=== PATIENT | male | born 1965 | race Caucasian/White ===

== ENCOUNTER 2022-12-04 11:19 | Inpatient (IN) | payer MEDICARE ==
[~2022-12-04] VITALS: Ht 177.8 cm; Wt 71.4 kg
[2022-12-04] VITALS (26 sets, daily range): BP systolic 103–166; BP diastolic 49–83
--- NOTE | 2022-12-04 11:28 | NUR ---
PATIENT ARRIVED IN ED C/O DIZZINESS. STROKE ALERT INITIATED AND TAKEN TO CT.
--- NOTE | 2022-12-04 11:36 | NUR ---
PT AT CT, VSS. PT ALERT AND ORIENTED X 3, AIRWAY PATENT, RESP EVEN AND NON LABORED, SKIN P/W/D. SPEECH CLEAR, FACIAL SWELLING NOTED S/T DENTAL CARIES, NO FACIAL DROOP PER DR GUADARRAMA. COMMUNITY DEVELOPMENT TECHNICIAN EQUAL AND STRONG, NO DRIFT NOTED, SENSORY DEFICIT NOTED TO RIGHT UPPER AND LOWER EXT.
--- NOTE | 2022-12-04 12:01 | NUR ---
PT BACK TO ER ROOM 10 IN STABLE CONDITION. PT STATES " DIZZINESS IS A LITTLE BETTER, HAS MULTIPLE COMPLAINTS AT THIS TIME, C/O DENTAL PAIN, RIGHT ARM PAIN, RIGHT UPPER BACK PAIN, AND PAIN TO BILATERAL LOWER EXTREMITIES. AWARE.
[2022-12-04 12:03] LABS: BASO% 0.3 % (0-3); EOS% 1.6 % (0-8); HEMATOCRIT 47.7 % (39.0-50.0); HEMOGLOBIN 15.9 g/dl (14.0-18.0); IMMATURE GRANULOCYTES 1.8 % (0.0-5.0); LYMPH% 21.8 % (15-41); MEAN CELL VOLUME 96.4 fL CALC (80.0-100.0); MEAN CORPUSCULAR HGB 32.1 pG CALC (26.0-32.0); MEAN CORPUSCULAR HGB CONC 33.3 g/dL CAL (32.0-36.0); NEUT# 5.74 thou/uL (1.82-7.42); NEUT% 66.5 % (42-76); RED BLOOD COUNT 4.95 mill/uL (4.70-6.10); RED CELL DISTRI WIDTH 14.3 % (11.5-15.5)
[2022-12-04] MEDS ORDERED: BACLOFEN10 MG PO (12:17)
[2022-12-04] MEDS ORDERED: TRAMADOL HCL50 MG PO (12:18)
[2022-12-04] MEDS ORDERED: HYDROCO/APAP1 TA9 PO (12:19)
[2022-12-04 12:20] LABS: GFR FOR AFR.AMER. > 60 ML/MIN (>=60 (CALC)); GFR OTHER RACES > 60 ML/MIN (>=60 (CALC))
[2022-12-04] MEDS ORDERED: CRESTOR5 MG PO (12:20)
[2022-12-04] MEDS ORDERED: CARDIZEM LA180 M1 PO (12:21)
[2022-12-04] MEDS ORDERED: NORVASC PO (12:21)
[2022-12-04] MEDS ORDERED: GABAPENTIN100 MG PO (12:21)
--- NOTE | 2022-12-04 12:30 | NUR ---
PT RESTING WITH EYES CLOSED, AWAKENS EASILY. SPOUSE AT BEDSIDE. NO CHANGES IN PT STATUS.
[2022-12-04 12:40] LABS: URINE BILIRUBIN - DIPSTICK Negative (NEGATIVE); URINE BLOOD DIPSTICK Trace-lysed (NEGATIVE); URINE GLUCOSE - DIPSTICK Negative (NEGATIVE); URINE KETONE Negative (NEGATIVE); URINE LEUK ESTERASE Negative (NEGATIVE); URINE NITRITE - DIPSTICK Negative (Negative); URINE PROTEIN - DIPSTICK Negative (NEG-TRACE); URINE SPECIFIC GRAVITY <=1.005; URINE UROBILINOGEN - DIPSTICK 0.2 E.U./dL (0.2)
[2022-12-04 12:43] LABS: URINE COLOR Yellow
[2022-12-04 13:00] LABS: PROTHROMBIN TIME 9.9 SECONDS (9.0-12.5)
--- NOTE | 2022-12-04 13:00 | NUR ---
PT GIVEN URINAL, VOIDED 900CC CLEAR YELLO URINE. NO COMMPLAINTS VOICED AT THIS TIME.
[2022-12-04 13:01] LABS: ALKALINE PHOSPHATASE 71 u/l (38-126); ANION GAP 15 (6-22 (CALC)); BILIRUBIN, TOTAL 0.6 mg/dL (0.2-1.3); BUN 12 mg/dL (9-20); BUN/CREATININE RATIO 17 (12-20 (CALC)); CALCULATED LDLCHOLESTEROL 22 mg/dL (62-129 (CALC)); CARBON DIOXIDE 21 mmol/l (22-30); CHLORIDE 102 mmol/l (95-108); CHOLESTEROL HDL RATIO 2.7 (<4.4 (CALC)); CREATININE 0.7 mg/dL (0.7-1.3); GFR FOR AFR.AMER. > 60 ML/MIN (>=60 (CALC)); GFR OTHER RACES > 60 ML/MIN (>=60 (CALC)); HDL CHOLESTEROL 46 mg/dL (39.0-59.0); POTASSIUM 3.6 mmol/l (3.5-5.1); SGOT/AST 29 u/l (17-59); SODIUM 135 mmol/l (137-146); TOTAL CHOLESTEROL 125 mg/dl (0-199); TOTAL PROTEIN 6.7 g/dL (6.3-8.2); TOTAL TRIGLYCERIDES 284 mg/dl (0-149); VLDL CHOLESTROL 57 mg/dl (8-62 (CALC))
--- NOTE | 2022-12-04 14:00 | NUR ---
DR PIRES AT BEDSIDE TO DISCUSS CLINICAL FINDINGS WITH PT, HE VERBALIZED UNDERSTANDING. NO FACIAL DROOP OR SLURRED SPEECH NOTED, REPORTS NO CHANGES IN SENSORY DEFICITS IN RIGHT UPPER AND LOWER EXT. AIRWAY PATENT,RESP EVEN AND NON LABORED.
--- NOTE | 2022-12-04 14:54 | NUR ---
male pt received to ICU bed 7 in stable condition via stretcher accompanied by Boubacar Cunha RN; pt ambulatory to bed with stand by assistance; admission assessment completed at this time; pt alert and oriented; denies pain at current; c/c of "lightheadedness, little dizziness and blurred vision"; no n/v noted; resp even and unlabored; lungs clear; skin color wnl; ra; hr reg; strong pulses; 1+ edema noted to ble; sb on monitor; feet noted slightly red, pt states "all the time"; abd soft with bs present; no bm noted per creative services writer; urinal placed at bedside; no urine to inspect at this time; #20 to lac and rac saline locked; no redness or edema noted at sites; facial droop noted to right, facial swelling noted to left; NIH completed; plan of care/ am meds explained; call light within reach; will continue to monitor
--- NOTE | 2022-12-04 16:00 | NUR ---
resting in bed with eyes closed; no apparent distress noted; pt noted to desat; o2 greatly approves when awakened; sr on monitor; call light within reach; will continue to monitor
--- NOTE | 2022-12-04 18:32 | NUR ---
pt awake in bed; frequent vomiting noted; MD made aware; orders received; sr on monitor; call light within reach
[2022-12-04 18:47] LABS: CALCULATED LDLCHOLESTEROL 49 mg/dL (62-129 (CALC)); CHOLESTEROL HDL RATIO 2.5 (<4.4 (CALC)); HDL CHOLESTEROL 52 mg/dL (39.0-59.0); TOTAL CHOLESTEROL 129 mg/dl (0-199); TOTAL TRIGLYCERIDES 141 mg/dl (0-149); VLDL CHOLESTROL 28 mg/dl (8-62 (CALC))
--- NOTE | 2022-12-04 19:00 | NUR ---
hand off report received
--- NOTE | 2022-12-04 20:00 | NUR ---
PATIENT RESTING QUIETLY, AWAKE AND ALERT, WATCHING TV, RESPIRATIONS EVEN AND UNLABORED ON ROOM AIR, C/O HEADACHE, PRN MEDICATION REQUESTED FROM MD AND GIVEN AT PATIENT REQUEST, NO S/S OF DISTRESS NOTED.
--- NOTE | 2022-12-04 22:00 | NUR ---
PATIENT RESTING QUIELTY WITH EYES CLOSED, RESPIRATIONS EVEN AND UNLABORED ON ROOM AIR, REPORTS RELIEF OF HEADACHE SYMPTOMS AFTER TYLENOL ADMINISTRATION, NO S/S OF DISTRESS NOTED.
[2022-12-05] VITALS (18 sets, daily range): BP systolic 125–185; BP diastolic 60–94
--- NOTE | 2022-12-05 | NUR ---
PATIENT RESTING WITH EYES CLOSED, LIGHTS OFF FOR COMFORT, NO S/O PAIN OR DISCOMFORT, NO S/S OF DISTRESS NOTED, RESPIRATIONS EVEN AND UNLABORE DON ROOM AIR.
--- NOTE | 2022-12-05 02:00 | NUR ---
patient resting quietly with eyes closed, all vitals wnl
--- NOTE | 2022-12-05 04:00 | NUR ---
PATIENT RESTING QUIETLY WITH EYES CLOSED, RESPIRATIONS EVEN AND UNLABORED ON ROOM AIR, NO C/O PAIN OR DISCOMFORT, NO S/S OF DISTRESS NOTED, ABLE TO USE URINAL UNASSISTED.
--- NOTE | 2022-12-05 08:00 | NUR ---
awake in bed; no apparent distress noted; pt offers no complaints; assessment completed at this time; pt alert and oriented; denies pain; no n/v noted; resp even and unlabored; lungs clear; skin color wnl; ra; hr reg; strong pulses; no edema noted; st on monitor; abd soft with bs present; no bm noted per check writer salesperson; no urine to inspect at this time; #20 to lac and rac saline locked; no redness or edema noted at site; NIH 1 related to mild right facial droop; pt with bilat jaw pain and swelling to left jaw; admits to jaw pain when smiling; plan of care/ am meds explained; call light within reach; will continue to monitor
[2022-12-05 09:17] LABS: BASO% 0.1 % (0-3); EOS% 0.9 % (0-8); HEMATOCRIT 49.2 % (39.0-50.0); HEMOGLOBIN 16.1 g/dl (14.0-18.0); IMMATURE GRANULOCYTES 0.9 % (0.0-5.0); MEAN CELL VOLUME 97.2 fL CALC (80.0-100.0); MEAN CORPUSCULAR HGB 31.8 pG CALC (26.0-32.0); MEAN CORPUSCULAR HGB CONC 32.7 g/dL CAL (32.0-36.0); MONO% 6.4 % (2-13); NEUT# 5.41 thou/uL (1.82-7.42); NEUT% 78.7 % (42-76); RED BLOOD COUNT 5.06 mill/uL (4.70-6.10); RED CELL DISTRI WIDTH 14.3 % (11.5-15.5)
--- NOTE | 2022-12-05 09:49 | NUR ---
lab technologist present at bedside for echo
[2022-12-05 10:08] LABS: ANION GAP 13 (6-22 (CALC)); BUN 14 mg/dL (9-20); BUN/CREATININE RATIO 18 (12-20 (CALC)); CARBON DIOXIDE 25 mmol/l (22-30); CHLORIDE 106 mmol/l (95-108); CREATININE 0.8 mg/dL (0.7-1.3); GFR FOR AFR.AMER. > 60 ML/MIN (>=60 (CALC)); GFR OTHER RACES > 60 ML/MIN (>=60 (CALC)); POTASSIUM 3.9 mmol/l (3.5-5.1); SODIUM 139 mmol/l (137-146)
--- NOTE | 2022-12-05 10:16 | NUR ---
Dr Long present at bedside to assess pt and discuss plan of care/ discharge
--- NOTE | 2022-12-05 12:11 | NUR ---
awake in bed; anxiously awaiting discharge; sr on monitor; iv intact; call light within reach; will continue to monitor
--- NOTE | 2022-12-05 14:00 | NUR ---
awake in bed; offers no complaints; no distress noted; iv intact; sr on monitor; awaiting discharge; call light within reach; will continue to monitor
[2022-12-05] MEDS ORDERED: PLAVIX75 MG PO (15:28)
[2022-12-05] MEDS ORDERED: ATORVASTATIN CA40 MG PO (15:30)
[2022-12-05] MEDS ORDERED: ASPIRIN ADULT L81 M2 PO (15:31)
--- NOTE | 2022-12-05 15:57 | NUR ---
Dr Long called per bond underwriter in regards to outpatient MRI orders; pt eber follow up with pcp to obtained order for MRI per Dr Long
--- NOTE | 2022-12-05 16:19 | NUR ---
Discharge instructions given. Patient verbalizes understanding of same. Discharged in stable condition via Wheelchair to Home with spouse. All belongings sent with pt.
--- NOTE | 2022-12-05 17:21 | NUR ---
spouse present at bedside; pt discharged via wc in stable condition
[2022-12-06] MEDS ORDERED: AMLODIPINE BESYL5 MG PO (07:23)
== END 2022-12-05 17:21 | disposition home or self-care (01) | DRG 69 ==
LOC: ED 11:19 → ED-I 13:11 → ED 13:40 → ICU 13:41
PROVIDERS: Family Medicine; ADMIT Student in an Organized Health Care Education/Training Program; ATTEND Student in an Organized Health Care Education/Training Program
DX: G45.9 Transient cerebral ischemic attack, unspecified (principal); R42 Dizziness and giddiness; I10 Essential (primary) hypertension; F41.9 Anxiety disorder, unspecified; F32.A Depression, unspecified; Z95.818 Presence of other cardiac implants and grafts; Z86.73 Personal history of transient ischemic attack (TIA), and cerebral infarction without residual deficits
CPT/HCPCS: Q9967

== ENCOUNTER 2022-12-10 15:20 | Emergency (ER) | payer MEDICARE ==
[2022-12-10] VITALS (10 sets, daily range): BP systolic 133–145; BP diastolic 80–113
[~2022-12-10] VITALS: Ht 177.8 cm; Wt 69.3 kg
[~2022-12-10 15:20] MED LIST: AMLODIPINE BESYL5 MG PO; ASPIRIN ADULT L81 M2 PO; ATORVASTATIN CA40 MG PO; BACLOFEN10 MG PO; CARDIZEM LA180 M1 PO; CRESTOR5 MG PO; GABAPENTIN100 MG PO; HYDROCO/APAP1 TA9 PO; NORVASC PO; PLAVIX75 MG PO; TRAMADOL HCL50 MG PO
[2022-12-10] MEDS ORDERED: NAPROXEN500 MG PO (18:19)
[2022-12-10] MEDS ORDERED: METHOCARBAMOL500 MG PO (18:19)
== END 2022-12-10 18:53 | disposition home or self-care (01) ==
LOC: ED 15:20
DX: S80.211A Abrasion, right knee, initial encounter (principal); S80.01XA Contusion of right knee, initial encounter; S46.911A Strain of unspecified muscle, fascia and tendon at shoulder and upper arm level, right arm, initial encounter; W10.9XXA Fall (on) (from) unspecified stairs and steps, initial encounter; Y93.89 Activity, other specified; Y92.029 Unspecified place in mobile home as the place of occurrence of the external cause; I10 Essential (primary) hypertension; F41.9 Anxiety disorder, unspecified; F32.A Depression, unspecified; Z86.73 Personal history of transient ischemic attack (TIA), and cerebral infarction without residual deficits

== ENCOUNTER 2023-11-05 10:59 | Emergency (ER) | payer MEDICARE ==
[~2023-11-05] VITALS: Ht 177.8 cm; Wt 69.5 kg
[2023-11-05] VITALS (11 sets, daily range): BP systolic 119–161; BP diastolic 78–97
[~2023-11-05 10:59] MED LIST changes: +METHOCARBAMOL500 MG PO; +NAPROXEN500 MG PO
[2023-11-05] MEDS ORDERED: SODIUM CHLORIDE 0.9% 1,000 ML IV ONE (11:15)
[2023-11-05 11:35] LABS: BASO% 0.4 % (0-3); EOS% 0.8 % (0-8); HEMATOCRIT 54.5 % (39.0-50.0); HEMOGLOBIN 17.7 g/dl (14.0-18.0); IMMATURE GRANULOCYTES 0.9 % (0.0-5.0); LYMPH% 18.4 % (15-41); MEAN CELL VOLUME 98.9 fL CALC (80.0-100.0); MEAN CORPUSCULAR HGB 32.1 pG CALC (26.0-32.0); MEAN CORPUSCULAR HGB CONC 32.5 g/dL CAL (32.0-36.0); MONO% 10.1 % (2-13); NEUT# 7.4 thou/uL (1.82-7.42); NEUT% 69.4 % (42-76); RED BLOOD COUNT 5.51 mill/uL (4.70-6.10); RED CELL DISTRI WIDTH 12.1 % (11.5-15.5)
[2023-11-05 11:39] LABS: URINE BILIRUBIN - DIPSTICK Negative (NEGATIVE); URINE BLOOD DIPSTICK Trace-lysed (NEGATIVE); URINE GLUCOSE - DIPSTICK 100 mg/dL (NEGATIVE); URINE KETONE Negative (NEGATIVE); URINE LEUK ESTERASE Negative (NEGATIVE); URINE NITRITE - DIPSTICK Negative (Negative); URINE PROTEIN - DIPSTICK 30 mg/dL (NEG-TRACE); URINE SPECIFIC GRAVITY 1.015
[2023-11-05 11:40] LABS: URINE COLOR Yellow
[2023-11-05 11:45] LABS: ALKALINE PHOSPHATASE 76 u/l (38-126); ANION GAP 23 (6-22 (CALC)); BILIRUBIN, TOTAL 0.8 mg/dL (0.2-1.3); BUN 12 mg/dL (9-20); BUN/CREATININE RATIO 11 (12-20 (CALC)); CARBON DIOXIDE 13 mmol/l (22-30); CHLORIDE 111 mmol/l (95-108); CREATININE 1.1 mg/dL (0.7-1.3); ESTIMATED GFR 79 ML/MIN (>=90 (CALC)); POTASSIUM 3.4 mmol/l (3.5-5.1); SGOT/AST 35 u/l (17-59); SODIUM 144 mmol/l (137-146); TOTAL PROTEIN 7.9 g/dL (6.3-8.2)
[2023-11-05 11:48] LABS: URINE RBC 0-2 RBC/hpf (0-5); URINE SQUAMOUS EPITHELIAL CELL RARE EPI/hpf (0-FEW); URINE WBC 0-2 WBC/hpf (0-5)
[2023-11-05 11:49] LABS: URINE HYALINE CAST FEW lpf (NONE-RARE)
[2023-11-05] MEDS ORDERED: ACETAMINOPHEN 500 MG TAB PO ONE (12:40)
== END 2023-11-05 13:32 | disposition home or self-care (01) ==
LOC: ED 10:59
PROVIDERS: Family Medicine
DX: R56.9 Unspecified convulsions (principal); I71.21 Aneurysm of the ascending aorta, without rupture; I10 Essential (primary) hypertension; F41.9 Anxiety disorder, unspecified; F32.A Depression, unspecified; Z86.73 Personal history of transient ischemic attack (TIA), and cerebral infarction without residual deficits